=== PATIENT | male | born 1985 | race Caucasian/White ===

== ENCOUNTER 2017-02-22 16:23 | Emergency (ER) | payer OTHER ==
[2017-02-22 16:31] VITALS: BP 127/84; PULSE 100; RESP 22; O2SAT 98
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
[2017-02-22] MEDS ORDERED: HYDROCODONE/APAP 5/325 TAB PO ONE (17:13)
[2017-02-22] MEDS ORDERED: HYDROCOD/APAP 5/325 PREPACK#6 BTL TAKEHOME ONE ×2 (17:19→17:24)
== END 2017-02-22 17:25 | disposition home or self-care (01) ==
DX: S42.002A Fracture of unspecified part of left clavicle, initial encounter for closed fracture (principal); V19.9XXA Pedal cyclist (driver) (passenger) injured in unspecified traffic accident, initial encounter
CPT/HCPCS: L3980